=== PATIENT | female | born 1960 | race Caucasian/White ===

== ENCOUNTER 2017-06-23 18:13 | Emergency (ER) | payer OTHER ==
[~2017-06-23] VITALS: Ht 160 cm; Wt 85.0 kg
[~2017-06-23 18:13] MED LIST: ASPI-664 PO; CETI-240 PO; FLUT9.9S NASAL; LISI20TA11 PO
[2017-06-23 18:16] VITALS: Ht 160 cm; Wt 85.0 kg
[2017-06-23] MEDS ORDERED: KETOROLAC 30 MG INJ IM STA (19:11)
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
[2017-06-23] MEDS ORDERED: NAPR-260 PO (20:52)
[2017-06-23 21:25] VITALS: RESP 17; TEMP 97.6
[2017-06-23 21:58] VITALS: BP 172/100; PULSE 67
--- NOTE | 2017-06-30 16:54 | ERD ---
ER Documentation Chief Complaint Date/Time DATE: 06/30/17 TIME: 16:52 Chief Complaint RIGHT ARM PAIN/ NUMBNESS ONSET YESTERDAY, HX HTN ON MEDS HPI This patient is a 56-year-old female who complains of right arm pain associated with tingling which began yesterday. She denies trauma. No neck pain. She feels tingling in the arm. She did take no medicine for relief of symptoms. She does have history of hypertension and she takes hypertensive medication. She is worried about high blood pressure at home. She does not remember what it is but she does believe it was high. Symptoms are currently intermittent. No chest pain, shortness of breath, dizziness, syncope, or other symptoms reported at this time. ROS All systems reviewed and are negative except as per history of present illness. Medications Home Meds Active Scripts Naproxen* (Naprosyn*) 500 Mg Tablet, 500 MG PO BID Y for PAIN AND/OR INFLAMMATION, #30 TAB Prov:CHARLES LOCKHART PA-C 06/23/17 Reported Medications Cetirizine Hcl* (Cetirizine Hcl*) 10 Mg Tablet, 10 MG PO DAILY 02/24/16 Fluticasone Propionate (Flonase Allergy Relief) 9.9 Ml [place].susp, 1 SPRAY NASAL DAILY, BOTTLE TO EACH NOSTRIL 02/24/16 Aspirin* (Aspirin* EC) 81 Mg Tablet.dr, 81 MG PO DAILY 02/24/16 Lisinopril* (Lisinopril*) 20 Mg Tablet, 20 MG PO DAILY 02/24/16 Allergies Allergies: Coded Allergies: No Known Allergy (Verified , NONE, 02/24/16) PMhx/Soc Medical and Surgical Hx: pt denies Surgical Hx History of Surgery: No Anesthesia Reaction: No Hx Neurological Disorder: Yes (headache) Hx Respiratory Disorders: No Hx Cardiac Disorders: Yes (htn) Hx Psychiatric Problems: No Hx Miscellaneous Medical Probl: No Hx Alcohol Use: No Hx Substance Use: No Hx Tobacco Use: No Smoking Status: Never smoker Physical Exam Physical Exam Const: Toxic, well-appearing female in no acute distress. Head: Atraumatic Eyes: Normal Conjunctiva ENT: Normal External Ears, Nose and Mouth. Neck: Full range of motion..~ No meningismus. Resp: Clear to auscultation bilaterally Cardio: Regular rate and rhythm, no murmurs Abd: Soft, non tender, non distended. Normal bowel sounds Skin: No petechiae or rashes Back: No midline or flank tenderness Ext: No cyanosis, or edema the patient does have subjective tenderness to palpation throughout the right arm but no obvious deformity, edema, or other abnormalities noted. The patient does have 2+ radial pulses noted. Neur: Awake and alert Psych: Normal Mood and Affect Results 24 hrs Current Medications Medications (Trade) Dose Ordered Sig/Rakesh Route PRN Reason Start Time Stop Time Status Last Admin Dose Admin Ketorolac Tromethamine (Toradol) 30 mg ONCE STAT IM 06/23/17 19:11 06/23/17 19:13 DC 06/23/17 19:32 Clonidine (Catapres) 0.1 mg ONCE ONCE PO 06/23/17 21:30 06/23/17 21:31 DC 06/23/17 21:25 Procedures/MDM 56-year-old female presents to the emergency department with complaints of right arm pain intermittently for the 1 day. Physical examination is benign, however the patient was noted to have elevated blood pressure 182/97. This is relieved with 0.1 mg of p.o. clonidine in the department. Blood pressure did reduce to safe level prior to discharge. The patient had no physical examination findings or complaints consistent with hypertensive emergency or endorgan damage. Shoulder x-ray was negative for acute findings. The patient was stable for outpatient management with close follow-up with her primary care physician. She is to return immediately for any new or worsening symptoms. She was advised to speak to her primary care physician regarding her blood pressure regimen. I will suspicion for TIA, CVA, hypertensive emergency, or other emergent conditions at time of discharge. PROCEDURE: XR shoulder. CLINICAL INDICATION: Trauma. TECHNIQUE: Three views of the right shoulder were obtained. COMPARISON: There are no similar studies submitted for comparison. FINDINGS: There is no acute fracture or dislocation.No destructive osseous lesion is identified.The acromioclavicular joint is intact. The visualized portions of the chest are within normal limits. IMPRESSION: No acute fracture or dislocation. RPTAT: HIKT .Nir Prado MD, MD Date Time Electronically viewed and signed by .Nir Prado MD, on 06/23/2017 20:25 Departure Diagnosis: Primary Impression: Arm pain, right Condition: Fair Patient Instructions: Neck Exercises: Arm Lift Referrals: [facility] Usted se khan hecho un examen mdico de control que le indica que no est en elizabet condicin que requiera tratamiento urgente en el Departamento de Emergencia. Un estudio ms profundo y el tratamiento de boyd condicin pueden esperar sin ningn riesgo hasta que usted sea atendida/o en el consultorio de boyd mdico o elizabet cl dg. Es responsabilidad suya arreglar elizabet frantz para el seguimiento del eddie. MANEJO DE CONDICIONES NO URGENTES EN EL FUTURO 1) Si usted tiene un mdico de atencin primaria: Usted debera llamar a boyd mdico de atencin primaria antes de venir al departamento de emergencia. Despus de las horas de consultorio, boyd doctor o boyd asociado/a est disponible por telfono. El mdico o enfermero de clair en el servicio telefnico puede asesorarle por ronald medio para atender el problema, o eddie contrario se puede programar elizabet frantz. 2) Si usted no tiene un mdico de atencin primaria: Llame al mdico o clnica de referencia que aparece abajo simi las horas de consultorio para hacer elizabet frantz para que le vean. CLINICAS: [facility] [phone] [facility] [phone] [facility] [phone] [address] [facility]. [place] [phone] [facility] [place] [id number] [phone] [facility]. [phone] [address] [place] Additional Instructions: No mas mejor en 2-3 edgar, regresar. Mas peor en 24 horas, regresear rapidamente. Ir a doctor primario in 5-7 edgar. Usar instrucciones cuando peg medicamento. CHARLES LOCKHART PA-C Jun 30, 2017 16:54
== END 2017-06-23 21:58 | disposition home or self-care (01) ==
LOC: FTE 18:13
DX: M79.601 Pain in right arm (principal); I10 Essential (primary) hypertension; Z79.82 Long term (current) use of aspirin
CPT/HCPCS: 73030; 96372; J1885; Z7502; Z7610

== ENCOUNTER 2017-09-20 17:26 | Emergency (ER) | payer OTHER ==
[~2017-09-20] VITALS: Wt 85.4 kg
[~2017-09-20 17:26] MED LIST changes: +NAPR-260 PO
[2017-09-20] MEDS ORDERED: CYCL-319 PO (20:08)
[2017-09-20] MEDS ORDERED: NAPR-260 PO (20:08)
[2017-09-20] MEDS ORDERED: HYDR-906 PO (20:08)
[2017-09-20 20:17] VITALS: BP 164/92; PULSE 67; RESP 18; TEMP 98.2
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
== END 2017-09-20 20:15 | disposition home or self-care (01) ==
LOC: FTE 17:26
DX: M54.5 Low back pain (principal); I10 Essential (primary) hypertension; Z79.82 Long term (current) use of aspirin
CPT/HCPCS: 99284

== ENCOUNTER 2017-12-03 01:14 | Emergency (ER) | END 2017-12-03 03:23 | disposition left against medical advice (07) ==

== ENCOUNTER 2018-07-07 10:06 | Day surgery (SDC) | END 2018-07-07 11:54 | disposition home or self-care (01) ==